=== PATIENT | female | born 1955 | race Caucasian/White ===

== ENCOUNTER → 2024-01-21 14:47 | Outpatient (REF) | payer MEDICARE, OTHER, SELFPAY | LOC: WDC 14:47 | PROVIDERS: ATTENDING PHYSICIAN Obstetrics & Gynecology Gynecology; FAMILY PHYSICIAN Family Medicine | DX: R92.2 Inconclusive mammogram (principal) | CPT/HCPCS: 76641 ==

== ENCOUNTER → 2024-07-14 09:46 | Outpatient (REF) | payer MEDICARE, OTHER, SELFPAY | LOC: RAD 09:46 | PROVIDERS: ATTENDING PHYSICIAN Family Medicine | DX: E78.00 Pure hypercholesterolemia, unspecified (principal); Z82.49 Family history of ischemic heart disease and other diseases of the circulatory system | CPT/HCPCS: 75571 ==

== ENCOUNTER → 2024-07-30 10:57 | Outpatient (REF) | payer MEDICARE, OTHER, SELFPAY | LOC: WDC 10:57 | PROVIDERS: ATTENDING PHYSICIAN Family Medicine | DX: Z12.31 Encounter for screening mammogram for malignant neoplasm of breast (principal) | CPT/HCPCS: 77063; 77067 ==

== ENCOUNTER → 2024-07-30 15:11 | Outpatient (REF) | payer MEDICARE, OTHER, SELFPAY | LOC: WDC 15:11 | PROVIDERS: ATTENDING PHYSICIAN Family Medicine | DX: R10.32 Left lower quadrant pain (principal); K57.90 Diverticulosis of intestine, part unspecified, without perforation or abscess without bleeding | CPT/HCPCS: 74177; Q9967 ==

== ENCOUNTER → 2024-09-09 10:15 | Outpatient (REF) | payer MEDICARE, OTHER, SELFPAY | LOC: RAD 10:15 | PROVIDERS: ATTENDING PHYSICIAN Family Medicine | DX: Z78.0 Asymptomatic menopausal state (principal) | CPT/HCPCS: 77080 ==

== ENCOUNTER 2025-01-07 19:16 | Emergency (ER) | payer MEDICARE, OTHER, SELFPAY ==
[2025-01-07 19:18] VITALS: BP 160/67
[2025-01-07 20:02] LABS: % Basophils 0.6 % (0-2); % Eosinophils 2.2 % (0-6); % Immature Granulocytes 0.3 % (0-0.5); % Lymphocytes 21.3 % (20.5-51.1); % Monocytes 8.6 % (1.7-9.3); Absolute Basophils 0.1 10^3/uL (0-0.2); Absolute Eosinophils 0.3 10^3/uL (0-0.7); Absolute Lymphocytes 2.6 10^3/uL (1.2-3.4); Absolute Monocytes 1.1 10^3/uL (0.1-0.6); Absolute Neutrophils 8.3 10^3/uL (1.4-6.5); Hematocrit 39.1 % (37.0-47.0); Hemoglobin 13.6 g/dL (12.0-16.0); Mean Corp Hgb Conc. 34.8 g/dL (33.0-37.0); Mean Corpuscular Hgb 31.9 pg (27.0-31.0); Mean Corpuscular Volume 91.8 fL (81.0-99.0); Mean Platelet Volume 8.8 fL (7.4-10.4); Nucleated Red Blood Cells % 0 %; Platelet Count 222 10^3/uL (130-400); Red Blood Cell Count 4.26 10^6/uL (4.20-5.40); Red Cell Dist. Width 12.4 % (11.5-14.5); White Blood Cell Count 12.4 10^3/uL (4.8-10.8)
[2025-01-07 20:10] LABS: ALT (SGPT) 21 U/L (0-35); AST (SGOT) 20 U/L (14-36); Albumin 4.1 g/dl (3.5-5.0); Alkaline Phosphatase 53 U/L (38-126); Blood Urea Nitrogen 15 mg/dl (7-17); Calcium 9.3 mg/dl (8.4-10.2); Carbon Dioxide 24 mmol/L (22-30); Chloride 109 mmol/L (98-107); Glucose 188 mg/dl (70-99); Lipase 101 U/L (23-300); Potassium 3.8 mmol/L (3.5-5.1); Sodium 140 mmol/L (135-145); Total Bilirubin 0.4 mg/dl (0.2-1.3); Total Protein 6.7 g/dl (6.3-8.2); eGFR > 60.00
[2025-01-07 20:36] VITALS: BP 117/59
[2025-01-07 21:00] VITALS: BP 126/65
[2025-01-07] MEDS: TORADOL 15 MG IV (21:08)
--- NOTE | 2025-01-07 22:42 | ED.GENMED ---
History of Present Illness
General
Chief Complaint: Abdominal Pain
Time Seen by Provider: 01/07/25 19:53
History of Present Illness
History of Present Illness:
69-year-old female presents emergency department for evaluation of left lower quadrant abdominal pain that began last night and worsened throughout the day. Seems to radiate from the left upper to left lower quadrant. No fevers or chills. Has not
had much of an appetite tonight. Prior abdominal surgery includes a tubal ligation
Past History
Past History
ED Past Medical History: None
Social History
Personal:
Living: with family
Employment: Employed
Review of Systems
Review of Systems
Allergies reviewed?: Yes
All Other Systems: ROS reviewed and negative except as documented in HPI and ROS
Phy Exam
Physical Exam
Physical Exam:
GEN: Well appearing, NAD, WDWN
HEENT: Oral mucosa moist, no scleral icterus
Cardiac: Regular rate
Lung: No respiratory distress, no tachypnea
Abdomen: Soft, focal left lower quadrant tenderness, no rigidity
MSK: No gross deformity or injuries
Skin: Good color, no pallor or jaundice, no rashes
Neuro: AO x3, moves all extremities freely
Psych: Calm, cooperative
Course
Orders/Labs/Results
Orders:
Orders
01/07/25 19:50
Complete Blood Count/With Diff Urgent
Comprehensive Metabolic Panel Urgent
Lipase Urgent
01/07/25 20:13
CT Abd/Pel (IV only)-DH only Urgent
Comment:
Reason For Exam: L flank/LLQ pain
Ketorolac [Toradol] 15 mg IV NOW STA
01/07/25 22:38
Amoxicillin 875 mg/Clav 125 mg [Augmentin 875 mg/125 mg] 1 tablet PO NOW STA
Abnormal Lab Results
01/07/25
19:50
WBC 12.4 H 10^3/uL
(4.8-10.8)
MCH 31.9 H pg
(27.0-31.0)
Absolute Neuts (auto) 8.3 H 10^3/uL
(1.4-6.5)
Absolute Monos (auto) 1.1 H 10^3/uL
(0.1-0.6)
Chloride 109 H mmol/L
(98-107)
Glucose 188 H mg/dl
(70-99)
01/07/25 19:50
01/07/25 19:50
Vital Signs
Initial and Last Documented VS:
Initial Vital Signs
Temp Pulse Resp BP Pulse Ox
97.7 F 71 20 160/67 96
01/07/25 19:18 01/07/25 19:18 01/07/25 19:18 01/07/25 19:18 01/07/25 19:18
Last Documented Vital Signs
Temp Pulse Resp BP Pulse Ox
97.7 F 70 18 126/65 97
01/07/25 19:18 01/07/25 20:36 01/07/25 20:36 01/07/25 21:00 01/07/25 21:30
MDM/Problems Addressed
MDM/Problems Addressed:
Imaging reveals acute diverticulitis with complicating factors. Will start on oral antibiotics and recommend clear liquid diet for the next 48 hours.
*Critical Care Note
Total Time (30-74mins, 75-104mins- exclusive of procedures): Not Applicable
ED Attending Note
-
Portions of this chart may have been created with voice recognition software.� Occasional wrong word or��sound alike� substitutions may have occurred due to the inherent limitations of voice recognition software.
Discharge Plan
Departure
Patient Disposition: Home (Routine Discharge)
Date of Disposition: 01/07/25
Time of Disposition: 22:43
Patient with high blood pressure during this ER visit?: No
Discharge Problem:
Acute diverticulitis
Instructions: Clear Liquid Diet, Diverticulitis (DC)
Prescriptions:
New
amoxicillin-pot clavulanate 875-125 mg tablet
1 tab PO BID Qty: 19 0RF
No Action
magnesium oxide 400 MG tablet
400 mg PO DAILY
acetaminophen 650 mg Tablet Extended Release
1,300 mg PO Q12H PRN (Reason: pain)
multivit with min-folic acid 0.4 mg Tablet
1 tab PO DAILY
Clear Eyes Complete 0.025-0.2-0.5 % Drops
1 drp OPHTHALMIC (EYE) QID PRN (Reason: dry)
Marijuana
1 dose inhalation HS
oxycodone 5 mg tablet
5 - 10 mg PO Q4HPRN PRN (Reason: moderate to severe pain) Qty: 20 0RF
Referrals:
Ginna Ramos MD [Family Provider] -
Interventions
Interventions:
*Risk Screen - Suicide Last Done: 01/07/25 19:18
*General Assessment Last Done: 01/07/25 19:18
*Neglect/Abuse Screening Last Done: 01/07/25 19:18
*ED- Fall Risk Assessment Last Done: 01/07/25 19:41
*ED COVID-19 Vaccine History Last Done: 01/07/25 19:41
HF-Cwkkcr-Lfuoywjihw Assessment Last Done: 01/07/25 19:41
Discharge Date and Time
Print Language: [place]
[2025-01-07] MEDS: AUGMENTIN 875 MG/125 MG 1 TABLET PO (22:46)
[2025-01-07 22:47] VITALS: BP 136/71
== END 2025-01-07 22:56 | disposition home or self-care (01) ==
LOC: EMR 19:16
PROVIDERS: EMERGENCY PHYSICIAN Emergency Medicine; FAMILY PHYSICIAN Family Medicine
DX: K57.32 Diverticulitis of large intestine without perforation or abscess without bleeding (principal)
CPT/HCPCS: 96374; 99284; 74177; 80053; 83690; 85025; Q9967

== ENCOUNTER 2025-02-14 18:51 | Emergency (ER) | payer MEDICARE, OTHER, SELFPAY ==
[2025-02-14 18:55] VITALS: BP 96/58
[2025-02-14 19:16] LABS: % Basophils 0.9 % (0-2); % Eosinophils 1.7 % (0-6); % Immature Granulocytes 0.1 % (0-0.5); % Lymphocytes 36.3 % (20.5-51.1); % Monocytes 7.3 % (1.7-9.3); % Neutrophils 53.7 % (42.2-75.2); Absolute Basophils 0.1 10^3/uL (0-0.2); Absolute Eosinophils 0.2 10^3/uL (0-0.7); Absolute Lymphocytes 3.4 10^3/uL (1.2-3.4); Absolute Monocytes 0.7 10^3/uL (0.1-0.6); Hematocrit 38.3 % (37.0-47.0); Hemoglobin 13.3 g/dL (12.0-16.0); Mean Corp Hgb Conc. 34.7 g/dL (33.0-37.0); Mean Corpuscular Hgb 31.6 pg (27.0-31.0); Mean Platelet Volume 9.1 fL (7.4-10.4); Nucleated Red Blood Cells % 0 %; Platelet Count 212 10^3/uL (130-400); Red Blood Cell Count 4.21 10^6/uL (4.20-5.40); White Blood Cell Count 9.2 10^3/uL (4.8-10.8)
[2025-02-14 19:34] LABS: ALT (SGPT) 23 U/L (0-35); AST (SGOT) 23 U/L (14-36); Albumin 4.2 g/dl (3.5-5.0); Alkaline Phosphatase 46 U/L (38-126); Blood Urea Nitrogen 14 mg/dl (7-17); Calcium 9.6 mg/dl (8.4-10.2); Carbon Dioxide 26 mmol/L (22-30); Chloride 108 mmol/L (98-107); Glucose 145 mg/dl (70-99); Potassium 3.5 mmol/L (3.5-5.1); Sodium 140 mmol/L (135-145); Total Bilirubin 0.6 mg/dl (0.2-1.3); Total Protein 6.9 g/dl (6.3-8.2); eGFR > 60.00
[2025-02-14 19:45] LABS: Troponin I < 0.012 ng/ml
--- NOTE | 2025-02-14 20:45 | ED.GENMED ---
History of Present Illness
General
Chief Complaint: Fainting Sensation
Source: patient
Exam Limitations: none
Time Seen by Provider: 02/14/25 20:30
History of Present Illness
History of Present Illness:
69-year-old female otherwise quite healthy presents after what sounds like syncopal episode. She had multiple episodes of diarrhea this morning and was sitting in a chair talking to her sister and her sister states her eyes rolled back in her head
slumped over. It was about 30 seconds so she came to and then was alert. Patient felt lightheaded beforehand. There is no chest pain or shortness of breath beforehand. Of note, patient had diverticulitis about 2 weeks ago and recently finished a
course of Augmentin. She denies abdominal pain. She denies blood in the diarrhea. No vomiting. She feels much better at the time of my exam. No other complaints at this time
Past History
Past History
ED Past Medical History: None
Social History
Personal:
Living: with family
Employment: Employed
Phy Exam
Physical Exam
Physical Exam:
General: Well-appearing female no acute respiratory distress
HEENT: Normocephalic atraumatic
Heart: Regular rate and rhythm
Lungs: Clear no wheeze
Abdomen is soft nontender nondistended no guarding or rebound normal bowel sounds
Extremities: No cyanosis or edema
Course
Orders/Labs/Results
Orders:
Orders
02/14/25 18:59
Electrocardiogram (*1) Urgent
Reason for Study: Chest Pain
EKG- Treatment ONCE
02/14/25 19:07
Complete Blood Count/With Diff Urgent
Comprehensive Metabolic Panel Urgent
Troponin I Urgent
02/14/25 20:42
0.9% Sodium Chloride 1000 ml [Nss] 1,000 ml IV BOLUS
Abnormal Lab Results
02/14/25
19:07
MCH 31.6 H pg
(27.0-31.0)
Absolute Monos (auto) 0.7 H 10^3/uL
(0.1-0.6)
Chloride 108 H mmol/L
(98-107)
Glucose 145 H mg/dl
(70-99)
02/14/25 19:07
02/14/25 19:07
Vital Signs
Initial and Last Documented VS:
Initial Vital Signs
Temp Pulse Resp BP Pulse Ox
97.9 F 77 16 96/58 98
02/14/25 18:55 02/14/25 18:55 02/14/25 18:55 02/14/25 18:55 02/14/25 18:55
Last Documented Vital Signs
Temp Pulse Resp BP Pulse Ox
97.9 F 67 12 115/54 97
02/14/25 18:55 02/14/25 21:00 02/14/25 21:00 02/14/25 21:00 02/14/25 21:00
MDM/Problems Addressed
Differential Diagnosis Includes:
Patient with what sounds like syncopal episode. Question arrhythmia versus dehydration versus vasovagal episode versus volume depletion given
Preceding symptoms of lightheadedness and lack of chest pain I do not suspect arrhythmia. Blood pressure slightly low on arrival however has improved since and is better at the time my exam. No abdominal discomfort. Will hydrate. Labs reviewed
through triage which are without significant finding. If patient able to provide stool sample can check for C. difficile given recent course of antibiotics
*Pulse Oximetry
SaO2: 98
Oxygen Mode of Delivery: Room air
Patient hypoxic: no
*Critical Care Note
Total Time (30-74mins, 75-104mins- exclusive of procedures): Not Applicable
Update Note
Update Note:
Patient unable to provide stool specimen here. She was hydrated. Suspect syncope may be orthostatic secondary to recent volume loss from diarrhea.
ED Attending Note
-
Portions of this chart may have been created with voice recognition software.� Occasional wrong word or��sound alike� substitutions may have occurred due to the inherent limitations of voice recognition software.
Discharge Plan
Departure
Patient Disposition: Home (Routine Discharge)
Date of Disposition: 02/14/25
Time of Disposition: 21:45
Patient with high blood pressure during this ER visit?: No
Discharge Problem:
Syncope
Instructions: Syncope (Fainting) (DC)
Prescriptions:
No Action
magnesium oxide 400 MG tablet
400 mg PO DAILY
acetaminophen 650 mg Tablet Extended Release
1,300 mg PO Q12H PRN (Reason: pain)
multivit with min-folic acid 0.4 mg Tablet
1 tab PO DAILY
Clear Eyes Complete 0.025-0.2-0.5 % Drops
1 drp OPHTHALMIC (EYE) QID PRN (Reason: dry)
Marijuana
1 dose inhalation HS
oxycodone 5 mg tablet
5 - 10 mg PO Q4HPRN PRN (Reason: moderate to severe pain) Qty: 20 0RF
amoxicillin-pot clavulanate 875-125 mg tablet
1 tab PO BID Qty: 19 0RF
Referrals:
Ginna Ramos MD [Family Provider, Family Practice]
Activity Restrictions/Additional Instructions:
Rest. Stay hydrated. Turn if worse otherwise follow-up with your doctor
Interventions
Interventions:
*Risk Screen - Suicide Last Done: 02/14/25 18:55
*General Assessment Last Done: 02/14/25 20:26
*Neglect/Abuse Screening Last Done: 02/14/25 18:55
*ED- Fall Risk Assessment Last Done: 02/14/25 20:26
*ED COVID-19 Vaccine History Last Done: 02/14/25 20:26
ED- Cardiac Assessment Last Done: 02/14/25 20:26
ED- Neurological Assessment Last Done: 02/14/25 20:26
Discharge Date and Time
Print Language: [place]
[2025-02-14 21:00] VITALS: BP 115/54
[2025-02-14] MEDS: NSS 1000 IV (21:02)
[2025-02-14 22:00] VITALS: BP 110/48
== END 2025-02-14 22:22 | disposition home or self-care (01) ==
LOC: EMR 18:51
PROVIDERS: Emergency Medicine; EMERGENCY PHYSICIAN Emergency Medicine; FAMILY PHYSICIAN Family Medicine
DX: R55 Syncope and collapse (principal)
CPT/HCPCS: 99284; 96360; 80053; 84484; 85025; 93005